=== PATIENT | female | born 1955 | race Caucasian/White ===

== ENCOUNTER → 2018-05-21 | Outpatient (CLI) | payer MEDICAID, OTHER | LOC: BRMIMAGING 13:17 | PROVIDERS: ATTEND Family Medicine | DX: Z13.820 Encounter for screening for osteoporosis (principal); M85.89 Other specified disorders of bone density and structure, multiple sites; E05.00 Thyrotoxicosis with diffuse goiter without thyrotoxic crisis or storm; Z78.0 Asymptomatic menopausal state; Z79.890 Hormone replacement therapy ==